=== PATIENT | male | born 1940 | race Caucasian/White ===

== ENCOUNTER 2018-09-12 13:12 | Emergency (ER) | payer OTHER ==
--- NOTE | 2018-09-12 14:11 | EDM.PDOC ---
ED HPI GENERAL MEDICAL PROBLEM - General Chief Complaint: Laceration Stated Complaint: LACERATION TO LT WRIST Time Seen by Provider: 09/12/18 13:12 Source of Information: Reports: Patient, Family, RN History Limitations: Reports: No Limitations - History of Present Illness INITIAL COMMENTS - FREE TEXT/NARRATIVE: 78 yr old male presents with 8mm laceration to left wrist. States he thinks he cut an artery. He was breaking a van window with a hammer, the glass broke and as he was reaching in to unlock the vehicle, a sharp piece of the glass fell from the top of the window and punctured the wrist. He had a cell phone cord wrapped around the arm, proximal to the laceration and a towel around the wrist. The bleeding had stopped upon exam. The cord was unwrapped and no return of blood. Consult with Dr Kong and examine pt. Strong radial pulse noted and laceration noted to radial vein. Treatments HYSTER DRIVER: Reports: Other (see below) Right Wrist Pain Score (Numeric/FACES): 3 ED ROS GENERAL - Review of Systems Review Of Systems: See Below Constitutional: Reports: No Symptoms HEENT: Reports: Glasses Respiratory: Reports: No Symptoms Cardiovascular: Reports: No Symptoms Skin: Reports: Other (puncture/laceration to left wrist) Neurological: Reports: No Symptoms Psychiatric: Reports: No Symptoms ED EXAM, GENERAL - Physical Exam Exam: See Below Exam Limited By: No Limitations General Appearance: Alert, No Apparent Distress Ears: Hearing Grossly Normal Head: Atraumatic Neck: Supple, Non-Tender Respiratory/Chest: No Respiratory Distress, Lungs Clear, Normal Breath Sounds Cardiovascular: Regular Rate, Rhythm Peripheral Pulses: 2+: Radial (L), Radial (R) Extremities: Normal Range of Motion, Normal Capillary Refill Neurological: Alert, Oriented, Normal Cognition Psychiatric: Normal Affect, Normal Mood Skin Exam: Warm, Dry, Normal Color, Wound/Incision (8mm linear laceration/ puncture wound to left wrist at radial vein area. ) Course - Vital Signs Last Recorded V/S: Last Vital Signs Temp 99.1 F 09/12/18 13:17 Pulse 85 09/12/18 13:17 Resp 18 09/12/18 13:17 BP 129/62 09/12/18 13:17 Pulse Ox 97 09/12/18 13:17 Departure - Departure Time of Disposition: 13:30 Disposition: Home, Self-Care 01 Condition: Good Clinical Impression: Puncture wound - injury, Laceration - Discharge Information *PRESCRIPTION DRUG MONITORING PROGRAM REVIEWED*: Not Applicable *COPY OF PRESCRIPTION DRUG MONITORING REPORT IN PATIENT ALBA: Not Applicable Instructions: Puncture Wound, [id number], Laceration Care, Adult Referrals: PCP,None [Primary Care Provider] - Forms: ED Department Discharge Care Plan Goals: Leave dressing on for the next 24 hours. Check with primary MD when last tetanus shot was. If not recent return to clinic in next 72 hours for shot. Watch for signs and symptoms of infection Return with any questions or concerns or call us. - Assessment/Plan Plan: Laceration/puncture wound to left radial vein, 8mm linear wound, bleeding has stopped. Area cleansed and antibiotic oint applied and pressure dressing. Remove dressing in 24 hour and continue to use antibiotic oint and bandaid to area as needed. Check on Tetanus vaccine. Pt and friend states he did have one in the last 12 months, but [facility]. Monitor site for any signs of infection. Area should heal nicely. RTC or ER if any signs of infection noted or bleeding that doesn't stop.
== END 2018-09-12 13:30 | disposition home or self-care (01) ==
LOC: LB.ED 13:12
DX: S61.512A Laceration without foreign body of left wrist, initial encounter (principal); W25.XXXA Contact with sharp glass, initial encounter
CPT/HCPCS: 99282